=== PATIENT | female | born 1965 | race Caucasian/White ===

== ENCOUNTER 2023-04-08 08:47 | Emergency (ER) | payer MEDICAID ==
[~2023-04-08] VITALS: Ht 170.2 cm; Wt 62.4 kg
[2023-04-08 09:20] LABS: Hemoglobin 7.2 g/dL (12.2-16.2); White Blood Cell 6.3 10^3/uL (4.4-10.8)
[2023-04-08 09:22] LABS: Hematocrit 21.2 % (36.0-46.0); Mean Corpuscular Hgb Conc. 33.8 g/dL (32.0-36.0); Mean Corpuscular Volume 91.8 fL (80.0-100.0); Red Blood Cells 2.31 10^6/uL (4.0-5.20); Red Cell Distribution Width 20.7 % (11.8-14.3)
[2023-04-08 09:26] LABS: Basophils % (manual) 0 (0.0-2.0); Blast Cells 0; Metamyelocytes % 0; Myelocytes % 0; Promyelocytes % 0; Reactive Lymphocytes 0
[2023-04-08 09:36] LABS: INR 1.06 (0.9-1.15); Partial Thromboplastin Time 27.8 SEC (24.5-34.5); Prothrombin Time 11.1 sec (9.3-11.8)
[2023-04-08 09:41] LABS: Anisocytosis Slight; Band Neutrophils % (manual) 1; Eosinophils % (manual) 4 (0-7); Lymphocytes % (manual) 8 (10.0-50.0); Monocytes % (manual) 2 (0-12); Platelet Estimate Markedly Decreased
[2023-04-08 10:46] VITALS: PULSE 97; RESP 31; O2SAT 95
[2023-04-08 10:50] VITALS: BP 142/71; PULSE 95; RESP 31; TEMP 98.5; O2SAT 95
== END 2023-04-08 11:12 | disposition short-term general hospital (02) ==
LOC: ER 08:47
DX: D69.6 Thrombocytopenia, unspecified (principal); C95.90 Leukemia, unspecified not having achieved remission; D18.1 Lymphangioma, any site; Z90.710 Acquired absence of both cervix and uterus; Z87.891 Personal history of nicotine dependence; Z88.2 Allergy status to sulfonamides
CPT/HCPCS: 36415; 70450; 85007; 85027; 85610; 85730